=== PATIENT | female | born 1995 | race Caucasian/White ===

== ENCOUNTER 2019-11-01 13:20 | Inpatient (IN) ==
[2019-11-01] MEDS ORDERED: Metoclopramide 10 MG/2 ML VIAL IVP PRN (14:19)
[2019-11-01] MEDS ORDERED: Naloxone 0.4 MG/ML INJ IVP PRN ×2 (14:19→17:57)
[2019-11-01] MEDS ORDERED: *HR* FentaNYL (PF) 100 MCG/2 ML VIAL IVP PRN (14:19)
[2019-11-01] MEDS ORDERED: Famotidine 20 MG/2 ML VIAL IVP PRN (14:19)
[2019-11-01] MEDS ORDERED: Lidocaine 1% 20 ML MDV INFILT PRN (14:20)
[2019-11-01] MEDS ORDERED: Ondansetron 4 MG/2 ML VIAL IVP PRN ×2 (14:20→17:57)
[2019-11-01] MEDS ORDERED: Azithromycin 500 MG in 0.9 % Sodium Chloride 250 ML IVPB PRN (14:20)
[2019-11-01] MEDS ORDERED: Ringers Solution, Lactated 1,000 ML IVC SCH (14:30)
[2019-11-01 14:43] LABS: Basophils % 0.1 %; Eosinophils # 0.1 K/mcL (0.0-0.6); Immature Granulocytes % 0.3 % (0-4); Lymphocytes # 1.2 K/mcL (0.6-4.6); Lymphocytes % 16.8 %; Mean Corpuscular HGB Conc 31.4 g/dL (31.6-35.5); Mean Corpuscular Hemoglobin 27.5 pg (28.0-33.3); Mean Corpuscular Volume 87.5 fL (83.0-100.0); Mean Platelet Volume 12.8 fL (9.4-12.4); Monocytes # 0.4 K/mcL (0.0-1.3); Monocytes % 5.8 %; Neutrophils # 5.4 K/mcL (1.6-8.9); Platelet Count 159 K/mcL (140-400); Red Cell Distribution Width 13.1 % (11.5-14.5); White Blood Count 7.1 K/mcL (4.3-11.1)
[2019-11-01 15:52] LABS: Amphetamine Screen,Urine Negative ng/mL (Cutoff=1000); Barbiturate Screen,Urine Negative ng/mL (Cutoff=200); Benzodiazepines Screen,Urine Negative ng/mL (Cutoff=200); Cannabinoid Screen,Urine Negative ng/mL (Cutoff = 50); Cocaine Screen,Urine Negative ng/mL (Cutoff= 300); Opiate Screen,Urine Negative ng/mL (Cutoff=300); Phencyclidine Screen,Urine Negative ng/mL (Cutoff=25)
[2019-11-01] MEDS ORDERED: miSOPROStoL 25 MCG TABLET VG SCH (17:30)
[2019-11-01] MEDS ORDERED: EPHEDrine 50 MG/ML VIAL IVP PRN (17:57)
[2019-11-01] MEDS ORDERED: *HR* FentaNYL (PF) 100 MCG/2 ML VIAL EP ONE (17:57)
[2019-11-01] MEDS ORDERED: Ropivacaine/PF 0.2% 20 ML VIAL EP ONE (17:57)
[2019-11-01] MEDS ORDERED: Epidural Premix (fent/bupiv) 110 ML EP SCH (18:00)
[2019-11-01] MEDS ORDERED: *HR* FentaNYL (PF) 100 MCG/2 ML VIAL ONE (22:17)
[2019-11-01] MEDS ORDERED: Oxytocin 20 units/ LR 1000 mL 20 UNIT/1,000 ML BAG IVC SCH (22:30)
[2019-11-02] MEDS ORDERED: Lanolin 7 G OINT...G. TP PRN (04:52)
[2019-11-02] MEDS ORDERED: Oxytocin 20 units/ LR 1000 mL 20 UNIT/1,000 ML BAG IVC SCH (04:52)
[2019-11-02] MEDS ORDERED: Benzocaine/Menthol 56 GM AEROSOL SPRAY TP PRN (04:52)
[2019-11-02] MEDS: Prenatal Vit/FA 1 EACH TABLET PO SCH (08:18)
[2019-11-02] MEDS: Acetaminophen 325 MG TABLET PO PRN (10:09)
[2019-11-02] MEDS: Ibuprofen 600 MG TABLET PO PRN ×2 (14:28→20:43)
[2019-11-03 05:28] LABS: Basophils % 0.3 %; Eosinophils # 0.1 K/mcL (0.0-0.6); Eosinophils % 1.2 %; Hematocrit 31.8 % (35.3-44.9); Immature Granulocytes % 0.2 % (0-4); Lymphocytes # 1.7 K/mcL (0.6-4.6); Lymphocytes % 27.5 %; Mean Corpuscular HGB Conc 31.4 g/dL (31.6-35.5); Mean Corpuscular Hemoglobin 27.9 pg (28.0-33.3); Mean Corpuscular Volume 88.6 fL (83.0-100.0); Mean Platelet Volume 12.4 fL (9.4-12.4); Monocytes # 0.4 K/mcL (0.0-1.3); Monocytes % 7.3 %; Neutrophils # 3.8 K/mcL (1.6-8.9); Platelet Count 139 K/mcL (140-400); Red Blood Count 3.59 M/mcL (3.82-4.97); Segmented Neutrophils % 63.5 %
[2019-11-03] MEDS: Ibuprofen 600 MG TABLET PO PRN (06:25)
[2019-11-03] MEDS: Acetaminophen 325 MG TABLET PO PRN (07:21)
[2019-11-03] MEDS: Prenatal Vit/FA 1 EACH TABLET PO SCH (07:22)
[2019-11-03 07:39] VITALS: BP 112/78
== END 2019-11-03 08:15 | disposition home or self-care (01) | DRG 807 ==
LOC: 1NENULAB → 1NENUOBS 11-02 04:44
PROVIDERS: ADMIT Student in an Organized Health Care Education/Training Program; ATTEND Student in an Organized Health Care Education/Training Program